=== PATIENT | female | born 1980 | race African-American/Black ===

== ENCOUNTER 2020-06-12 16:09 | Outpatient (REF) | payer OTHER, SELFPAY | END 2020-06-12 16:10 | disposition home or self-care (01) | LOC: HO.LAB 16:09 | PROVIDERS: PCP Internal Medicine; Visit Provider Internal Medicine | DX: Z20.828 Contact with and (suspected) exposure to other viral communicable diseases (principal) | CPT/HCPCS: C9803; U0003 ==

== ENCOUNTER 2024-03-06 08:49 | Outpatient (REF) | payer OTHER, SELFPAY ==
--- NOTE | ~2024-03-06 | XR_ITS ---
EXAMINATION: XR KNEE, RIGHT CLINICAL INFORMATION: Arthritic pain, without injury. COMPARISON: None available. TECHNIQUE: AP, lateral, tunnel, and sunrise views of the right knee. FINDINGS: Bony alignment and mineralization are normal. The lateral, medial and patellofemoral joint space compartments are well-maintained. There is tricompartment peripheral osteophyte formation, most pronounced in the medial joint space compartment. No fracture or dislocation is seen. There is a small joint effusion. No foreign body is seen. XR/XR knee LT 4V IMPRESSION: 1. There is mild tricompartment osteoarthritic changes of the right knee, most pronounced of the medial joint space compartment. 2. No fracture or dislocation is seen. 3. There is a small joint effusion. EXAMINATION: XR KNEE, LEFT CLINICAL INFORMATION: Arthritic pain, without injury. COMPARISON: None available. TECHNIQUE: AP, lateral, tunnel, and sunrise views of the left knee. FINDINGS: Bony alignment and mineralization are normal. The lateral, medial and patellofemoral joint space compartments are well-maintained. There is mild peripheral osteophyte formation of the medial joint space compartment. No fracture, dislocation or significant joint effusion is seen. There is no foreign body. IMPRESSION: 1. There is mild atherosclerotic change of the medial joint space compartment of the left knee. 2. No fracture, dislocation or joint effusion is seen. Electronically signed by: Javad Sutton MD 04/04/2024 04:17 PM EDT
--- NOTE | ~2024-03-06 | XR_ITS ---
EXAMINATION: XR KNEE, RIGHT CLINICAL INFORMATION: Arthritic pain, without injury. COMPARISON: None available. TECHNIQUE: AP, lateral, tunnel, and sunrise views of the right knee. FINDINGS: Bony alignment and mineralization are normal. The lateral, medial and patellofemoral joint space compartments are well-maintained. There is tricompartment peripheral osteophyte formation, most pronounced in the medial joint space compartment. No fracture or dislocation is seen. There is a small joint effusion. No foreign body is seen. XR/XR knee RT 4V IMPRESSION: 1. There is mild tricompartment osteoarthritic changes of the right knee, most pronounced of the medial joint space compartment. 2. No fracture or dislocation is seen. 3. There is a small joint effusion. EXAMINATION: XR KNEE, LEFT CLINICAL INFORMATION: Arthritic pain, without injury. COMPARISON: None available. TECHNIQUE: AP, lateral, tunnel, and sunrise views of the left knee. FINDINGS: Bony alignment and mineralization are normal. The lateral, medial and patellofemoral joint space compartments are well-maintained. There is mild peripheral osteophyte formation of the medial joint space compartment. No fracture, dislocation or significant joint effusion is seen. There is no foreign body. IMPRESSION: 1. There is mild atherosclerotic change of the medial joint space compartment of the left knee. 2. No fracture, dislocation or joint effusion is seen. Electronically signed by: Javad Sutton MD 04/04/2024 04:17 PM EDT
== END 2024-03-06 08:50 | disposition home or self-care (01) ==
LOC: HO.XRAY 08:49
PROVIDERS: PCP Internal Medicine; Visit Provider Internal Medicine
DX: M22.2X2 Patellofemoral disorders, left knee (principal); M22.2X1 Patellofemoral disorders, right knee
CPT/HCPCS: 73564

== ENCOUNTER 2025-01-31 10:54 | Outpatient (REF) | payer OTHER, SELFPAY ==
--- OUTSIDE RECORDS SUMMARY | 2025-01-31 12:01 | XMS_ITS | Clinical Summary ---
Author Organization [facility] Address [address] [place] [address] Phone Care Team Providers Care Manager Ambulatory Name Role Phone Milagro Pickett MD Primary Care Provider [phone] Encounters Date Type Department Care Team Description 12/22/2024 9:00 AM EDT - 12/22/2024 11:59 PM EDT [facility] at [address] [address] Encounter for screening mammogram for breast cancer Discharge Disposition: Home or Self Care from Last 3 Months Surgical History Surgery Date Site/Laterality Comments CHOLECYSTECTOMY PROCEDURE: [place] LAPAROSCOPY SURG CHOLECYSTECTOMY OTHER SURGICAL HISTORY PROCEDURE: [place] LAPAROSCOPY W/LYSIS OF ADHESIONS SECTION PROCEDURE: HISTORICAL DELIVERY; COMMENT: 2 prior C-sections Medical History Medical History Date Comments Anemia DX:Anemia Menorrhagia DX:Menorrhagia Fibroid uterus DX:Fibroid uteru s Female infertility, secondary DX :Female infertility, secondary Positive PPD DX:Positive PPD Social History Tobacco Use Types Packs/Day Years Used Date Smoking Tobacco: Never Smokeless Tobacco: Never Alcohol Use Standard Drinks/Week Comments Never 0 (1 standard drink = 0.6 oz pur e alcohol) Comments No Sex and Gender Information Value Date Recorded Sex Assigned at Not on file Legal Sex Female 5:14 PM EST Gender Identity Not on file Sexual Orientation Not on file Obstetrics History Para Term AB IAB SAB Ectopic Multiple Livin g Live Births 2 Last Filed Vital Signs Vital Sign Reading Time Taken Comments Blood Pressure - - Pulse - - Temperature - - Respiratory Rate - - Oxygen Saturation - - Inhaled Oxygen Concentration - - Weight 78.9 kg (174 lb) 12/22/2024 9:11 AM EDT Height 152.4 cm (5') 12/22/2024 9:11 AM EDT Body Mass Index 33.98 12/22/2024 9:11 AM EDT Plan of Treatment Health Maintenance Due Date Last Done Comments DTaP,Tdap,and Td Vaccines (1 - Tdap) 1999 Hepatitis B Vaccines (1 of 3 - 19+ 3-dose series) 1999 Cervical Cancer Screening: P ap Smear 2001 Depression Screening 06/27/2022 HIV Screening 06/27/2022 Hepatitis C Screening 06/27/2022 Social Influencers of Health Screening 06/27/2022 COVID-19 Vaccine (1 - 2023-2 5 season) 2024 Influenza Vaccine (#1) 2025 Breast Cancer Screening 12/22/2026 12/23/19 25, 12/10/2022, 04/03/2020 Meningococcal ACWY Vaccine Aged Out 01/05/2022 N o longer eligible based on patient's age to complete this topic HIB Vaccines Aged Out No longer eligi ble based on patient's age to complete this topic HPV Vaccines Aged Out No longer eligi ble based on patient's age to complete this topic Hepatitis A Vaccines Aged Out No long er eligible based on patient's age to complete this topic IPV Vaccines Aged Out No longer eligi ble based on patient's age to complete this topic MMR Vaccines Aged Out No longer eligi ble based on patient's age to complete this topic Meningococcal B Vaccine Aged Out No l onger eligible based on patient's age to complete this topic Pneumococcal Vaccine: Pediatrics (0 to 5 Years) and At-Risk Patients (6 to 49 Years) Aged Out No longer eligible b ased on patient's age to complete this topic RSV Immunization Patients Under 20 months Aged Out No longer eligible b ased on patient's age to complete this topic Varicella Vaccines Aged Out No longer eligible based on patient's age to complete this topic Procedures Procedure Name Priority Date/Time Associated Diagnosis Comments MG MAMMO DIGITAL SCREENING W ZENOBIA BILAT Routine 12/22/2024 9:17 AM EDT Encounter for screening mammogram for breast cancer from Last 3 Months Results * MG Mammo Digital Screening w Zenobia bilat (12/22/2024 9:17 AM EDT) Anatomical Region Laterality Modality Breast Bilateral Mammography 12/23/2024 12:0 8 PM EDT Impressions 12/23/2024 12:17 PM EDT No mammographic evidence of malignancy. No suspicious interval change. A negative mammogram in the presence of a clinically suspicious palpable abnormality does not preclude the possibility of malignancy or alter the indications for biopsy. ASSESSMENT: BI-RADS 1: NEGATIVE RECOMMENDATION(S): 1: Routine screening mammogram BILATERAL in 1 year. [facility] location[facility] at [address], [address] -------- FINAL REPORT -------- Dictated By: Ajay Jones Dictated Date: 12/23/2024 12:08 ET Assigned Physician: Ajay Jones Reviewed and Electronically Signed By: Ajay Jones Signed Date: 12/23/2024 12:17 ET Workstation ID: [id number] Transcribed By: Self Edit Transcribed Date: 12/23/2024 12:08 ET Narrative 12/23/2024 12:17 PM EDT EXAM: SCREENING MAMMOGRAPHY, BILATERAL HISTORY: SCREENING. 25 pound weight loss. COMPARISON: 12/09/22, 02/13/21, 04/03/20 TECHNIQUE: Synthesized CC and MLO projections of each breast. Tomosynthesis of each breast in the CC and MLO projections. ADDITIONAL IMAGING: None Computer-aided detection was employed with the Flareo AI 3-D. TISSUE DENSITY: There are scattered areas of fibroglandular density. (BI-RADS category B) FINDINGS: RIGHT BREAST: No suspicious mass. No suspicious calcification. No distortion. No additional suspicious right breast findings LEFT BREAST: No suspicious mass. No suspicious calcification. No distortion. No additional suspicious left breast findings Procedure Note Ajay Jones MD - 12/23/2024 EXAM: SCREENING MAMMOGRAPHY, BILATERAL HISTORY: SCREENING. 25 pound weight loss. COMPARISON: 12/09/22, 02/13/21, 04/03/20 TECHNIQUE: Synthesized CC and MLO projections of each breast.Tomosynthesis of each breast in the CC and MLO projections. ADDITIONAL IMAGING: None Computer-aided detection was employed with the iCAD ProFound AI 3-D. TISSUE DENSITY: There are scattered areas of fibroglandular density.(BI-RADS category B) FINDINGS: RIGHT BREAST: No suspicious mass. No suspicious calcification. No distortion. Noadditional suspicious right breast findings LEFT BREAST: No suspicious mass. No suspicious calcification. No distortion. Noadditional suspicious left breast findings IMPRESSION: No mammographic evidence of malignancy. No suspicious interval change. A negative mammogram in the presence of a clinically suspicious palpableabnormality does not preclude the possibility of malignancy or alter theindications for biopsy. ASSESSMENT: BI-RADS 1: NEGATIVE RECOMMENDATION(S): 1: Routine screening mammogram BILATERAL in 1 year. [facility] location[facility] at [address], [address] -------- FINAL REPORT -------- Dictated By: Ajay Jones Dictated Date: 12/23/2024 12:08 ET Assigned Physician: Aajy Jones Reviewed and Electronically Signed By: Ajay Jones Signed Date: 12/23/2024 12:17 ET Workstation ID: [id number] Transcribed By: Self Edit Transcribed Date: 12/23/2024 12:08 ET us Self Referral Sppl IMG BI PROCEDURES Final Resul t from Last 3 Months Insurance [facility] [address] [place] [address] Care Teams Manager Ambulatory Relationship Specialty Start Date End Date Milagro Pickett MD [address] PCP - General Internal Medicine 02/13/21
--- OUTSIDE RECORDS SUMMARY | 2025-01-31 12:01 | XMS_ITS | Clinical Summary ---
Author Organization [facility] Address [address] [place] [address] Care Team Providers Care Technical Sales Representatives Name Role Phone Ty Milagro Primary Care Provider [phone] Allergies No known active allergies Medications mefloquine (LARIAM) 250 mg tablet 1 tablet orally once weekly for 2 weeks before travel, weekly during travel and for 4 weeks after returning home 10 tablet Active Active Problems No known active problems Immunizations Immunization Administration Dates Next Due Meningococcal Polysaccharide (Groups A, C, Y and W-135) Diphtheria Toxoid Conjugate Vaccine (MCV4P) 01/05/2022 Typhoid Vi Capsular Polysaccharide Vaccine 01/05 Social History Tobacco Use Types Packs/Day Years Used Date Smoking Tobacco: Never Assessed Comments Unknown Sex and Gender Information Value Date Recorded Sex Assigned at Female 08/01/2024 11:39 AM EST Legal Sex Female 7:06 AM EDT Gender Identity Not on file Sexual Orientation Not on file Last Filed Vital Signs Vital Sign Reading Time Taken Comments Blood Pressure - - Pulse - - Temperature 36.7 C (98.1 F) 01/05/2022 5:08 PM EDT Respiratory Rate - - Oxygen Saturation - - Inhaled Oxygen Concentration - - Weight 81.2 kg (179 lb 0.2 oz) 01/05/2022 5:08 P M EDT Height - - Body Mass Index - - Plan of Treatment Health Maintenance Due Date Last Done Comments HIV Screening 1980 Varicella Vaccines (1 of - 13+ 2-dose series) 1993 Hepatitis B Vaccines (1 of 3 - 19+ 3-dose series) 1999 Pap Smear 09/28/2005 09/28/2002, 12/06/2000 Cervical Cancer Screening 09/29/2007 HPV and Pap Smear 09/29/2007 09/28/2002 DTaP,Tdap,and Td Vaccines (2 - Td or Tdap) 02/02/2023 02/02/2013 COVID-19 Vaccine ( - season) 2024 05/08/2021, 09/03/2020, 08/13/2020 Alcohol/Substance Use Screening 07/26/2024 Influenza Vaccine (#1) 2025 , 06/01/2023, 05/06/2021, Additional history exists RSV Vaccine (60+ years old and patients) (1 - 1-dose 75+ series) 2055 Pneumococcal Vaccine: Pediatric (0-5 Years) and At-Risk Patients (6-50 Years) Aged Out No longer eligible based on patient's age to complete this topic Procedures * Due to [place] [employer] law, this organization might not be sharing negative HIV tests. Procedure Name Priority Date/Time Associated Diagnosis Comments PAP W/REFLEX HPV, CONVERSION Routine 09/28/2002 10:43 AM EST from Last 3 Months or Most Recently Relevant to Health Maintenance Results * Due to [place] [employer] law, this organization might not be sharing negative HIV tests. * Pap w/Reflex HPV (09/28/2002 10:43 AM EST) Path Procedure TPG (101513) 1 Edited by: [id number] - 1042 [facility] ANATOMIC PATHOLOGY - BIOTECH THREE Specimen Labeled As: 1 CERVICAL/ENDOCERVI BARBRA CYTO MATERIAL - Edited by: [id number] CATRACHITA [facility] ANATOMIC PATHOLOGY - BIOTECH THREE Diagnosis THINPREP PAP TEST ADEQUACY: Satisfactory for evaluation INTERPRETATION: Negative for Intraepithelial Lesion or Malignancy REMARKS/RECOMMENDA TIONS: This is the result of a screening test with an inherent, but low, probability of false negative interpretation. Additional studies may be indicated in spite of a normal Pap test result. Edited by: [id number] - [id number] [facility] MANU[facility] ANATOMIC PATHOLOGY - BIOTECH THREE Gynecologic Clinical Data Specimen source:, THINPREP (CERVICAL AND ENDOCERVICAL) [facility] ANATOMIC PATHOLOGY - BIOTECH THREE Gynecologic Clinical Data First date of LMP:, 09/09/02 [facility] ANATOMIC PATHOLOGY - BIOTECH THREE Marker 1 SOPHY RAMIREZ [facility] ANATOMIC PATHOLOGY - BIOTECH THREE Marker 2 NILM,NILM [facility] ANATOMIC PATHOLOGY - BIOTECH THREE Cc Results To DARELL PARISH REF [id number] [facility] ANATOMIC PATHOLOGY - BIOTECH THREE Signature REPORT SIGNED: SOPHY ADAMS 10/03/02 [facility] ANATOMIC PATHOLOGY - BIOTECH THREE Sign Out Audit SOPHY ADAMS [id number] FINAL [place] [id number] [facility] ANATOMIC PATHOLOGY - BIOTECH THREE Cytology / Unknown 3 10:43 AM EST 09/29/2002 10:43 AM EST us Marge Monahan LAB HISTORICAL RESULTS Final Res ult [facility] ANATOMIC PATHOLOGY - BIOTECH THREE [address] [place] [address], from Last 3 Months or Most Recently Relevant to Health Maintenance Insurance [employer] Care Teams Technical Sales Representatives Relationship Specialty Start Date End Date Milagro Crawford [address] [address] PCP - General Internal Medicine 11/27/21
[2025-01-31 13:17] LABS: MANUAL DIFF FLAG NO
[2025-01-31 13:23] LABS: Hematocrit 36.7 % (37.0-47.0); Hemoglobin 11.4 g/dl (12.0-16.0); Imm Gran Abs Auto 0.01 X10*3/uL (0.00-0.03); Imm Gran Pct Auto 0.2 % (0.0-0.4); Lymphocytes Absolute Auto 1.8 X10*3/uL (1.2-4.9); Mean Corpuscular HGB Conc 31.1 g/dl (31.0-35.0); Mean Corpuscular Hemoglobin 26.5 pg (27.0-33.0); Mean Corpuscular Volume 85.2 fL (80.0-98.0); NRBC Abs Auto 0.000 X10*3/uL (0.0-0.012); NRBC Pct Auto 0.0 /100WBC (0.0-0.2); Platelet Count 286 X10*3/uL (160-400); Red Blood Count 4.31 X10*6/uL (4.20-5.50); White Blood Count 4.1 X10*3/uL (4.8-10.8)
[2025-01-31 13:27] LABS: Hemoglobin A1C 161.7899 umol/L; Total Hemoglobin (HGBA1C) 3039.2044 umol/L
[2025-01-31 13:32] LABS: Alanine Aminotransferase 14 U/L (0-31); Albumin Level 4.3 g/dL (3.5-5.0); Alkaline Phosphatase 57 U/L (39-117); Anion Gap 11 (12-20); Aspartate Amino Transferase 19 U/L (5-31); Blood Urea Nitrogen 10 mg/dL (9-16); Calcium 8.8 mg/dL (8.4-10.2); Carbon Dioxide 26 mmol/L (22-29); Chloride 107 mmol/L (96-108); Estimated Glomerular Filt Rate > 60; Potassium 3.7 mmol/L (3.3-5.1); Sodium 140 mmol/L (135-145); Total Protein 7.3 g/dL (6.5-8.0)
[2025-01-31 14:04] LABS: Microalbum/Creatinine Ratio Ur 12.2 ug/mg cr (<30)
== END 2025-01-31 10:55 | disposition home or self-care (01) ==
LOC: HO.10HDL 10:54
PROVIDERS: Visit Provider Internal Medicine
DX: Z00.00 Encounter for general adult medical examination without abnormal findings (principal); E78.00 Pure hypercholesterolemia, unspecified; E11.9 Type 2 diabetes mellitus without complications; D64.9 Anemia, unspecified
CPT/HCPCS: 36415; 80053; 82043; 82570; 83036; 85025

== ENCOUNTER 2025-05-10 13:48 | Outpatient (REF) | payer OTHER, SELFPAY ==
--- NOTE | ~2025-05-10 | XR_ITS ---
EXAMINATION: XR KNEE, LEFT CLINICAL INFORMATION: LEFT KNEE ARTHRITIS COMPARISON: X-ray 03/06/2024 TECHNIQUE: 5 views of the left knee. FINDINGS: No acute fracture, dislocation or suspicious bony lesion. Joint spaces are maintained. No significant effusion. No abnormal soft tissue calcification. Superior patellar insertional enthesopathy. XR/XR knee LT 4V IMPRESSION: No acute osseous findings. Electronically signed by: Clark Cornejo MD 05/10/2025 04:39 PM EDT
--- OUTSIDE RECORDS SUMMARY | 2025-05-10 17:34 | XMS_ITS | Clinical Summary ---
Author Organization [facility] Address [address] [place] [address] Care Team Providers Care Visual Education Director Name Role Phone Ty Milagro Primary Care Provider [phone] Allergies No known active allergies Medications mefloquine [...] Health Maintenance Due Date Last Done Comments Cologuard 1980 Colon Cancer Screening 1980 Colonoscopy 1980 FOBT / Fit Test 1980 HIV Screening 1980 Sigmoidoscopy 1980 Varicella Vaccines (1 of 2 - 13+ 2-dose series) 1993 Hepatitis B Vaccines (1 of 3 - 19+ 3-dose series) 1999 DTaP,Tdap,and Td Vaccines (2 - Td or Tdap) 02/02/2023 02/02/2013 Alcohol/Substance Use Screening 07/26/2024 COVID-19 Vaccine ( season) 2025 05/08/2021, 09/03/2020, 08/13/2020 Influenza Vaccine (#1) 2025 , 06/01/2023, 05/06/2021, Additional history exists RSV Vaccine (60+ years old and patients) (1 - 1-dose 75+ series) 2055 Cervical Cancer Screening Discontinued HPV and Pap Smear Discontinued 09/28/2002 Pap Smear Discontinued 09/28/2002, 12/06/2000 Pneumococcal Vaccine: Pediatric (0-5 Years) and At-Risk Patients (6-50 Years) Aged Out No longer eligible based on patient's age to complete this topic Procedures * Due to [place] law, this organization might not be sharing negative HIV tests. Procedure Name Priority Date/Time Associated Diagnosis Comments PAP W/REFLEX HPV, CONVERSION Routine 09/28/2002 10:43 AM EST from Last 3 Months or Most Recently Relevant to Health Maintenance Results * Due to [facility] law, this organization might not be sharing negative HIV tests. * Pap w/Reflex HPV (09/28/2002 10:43 AM EST) Path Procedure TPG (231056) 1 Edited by: [id number] - 1042 [facility] ANATOMIC PATHOLOGY - BIOTECH THREE Specimen Labeled As: 1 CERVICAL/ENDOCERVI BARBRA CYTO MATERIAL - Edited by: [id number] CATRACHITA [facility] ANATOMIC PATHOLOGY - BIOTECH THREE Diagnosis THINPREP PAP TEST ADEQUACY: Satisfactory for evaluation INTERPRETATION: Negative for Intraepithelial Lesion or Malignancy REMARKS/RECOMMENDA TIONS: This is the result of a screening test with an inherent, but low, probability of false negative interpretation. Additional studies may be indicated in spite of a normal Pap test result. Edited by: [id number] - 18[address] [facility] [facility] ANATOMIC PATHOLOGY - BIOTECH THREE Gynecologic Clinical Data Specimen source:, THINPREP (CERVICAL AND ENDOCERVICAL) [facility] ANATOMIC PATHOLOGY - BIOTECH THREE Gynecologic Clinical Data First date of LMP:, 09/09/02 [facility] ANATOMIC PATHOLOGY - BIOTECH THREE Marker 1 SOPHY RAMIREZ [facility] ANATOMIC PATHOLOGY - BIOTECH THREE Marker 2 NILM,NILM [facility] ANATOMIC PATHOLOGY - BIOTECH THREE Cc Results To DARELL PARISH REF [id number] [facility] ANATOMIC PATHOLOGY - BIOTECH THREE Signature REPORT SIGNED: SOPHY ADAMS 10/03/02 [facility] ANATOMIC PATHOLOGY - BIOTECH THREE Sign Out Audit SOPHY ADAMS [id number] FINAL [place] [id number] [facility] ANATOMIC PATHOLOGY - BIOTECH THREE Cytology / Unknown 3 10:43 AM EST 09/29/2002 10:43 AM EST us Marge Monahan LAB HISTORICAL RESULTS Final Res ult [facility] ANATOMIC PATHOLOGY - BIOTECH THREE [address] [place] [address], from Last 3 Months or Most Recently Relevant to Health Maintenance Insurance [facility] Care Teams Visual Education Director Relationship Specialty Start Date End Date Milagro Crawford [address] [place] [address] PCP - General Internal Medicine 11/27/21
--- OUTSIDE RECORDS SUMMARY | 2025-05-10 17:34 | XMS_ITS | Clinical Summary ---
Author Organization [facility] Address [address] [place] [address] Phone Care Team Providers Care Naval Designer Name Role Phone Milagro Pickett MD Primary Care Provider [phone] Surgical History Surgery Date Site/Laterality Comments CHOLECYSTECTOMY PROCEDURE: [place] LAPAROSCOPY SURG CHOLECYSTECTOMY OTHER SURGICAL HISTORY PROCEDURE: [place] LAPAROSCOPY W/LYSIS OF ADHESIONS SECTION PROCEDURE: HISTORICAL [...] Health Maintenance Due Date Last Done Comments Colorectal Cancer Screening: Colonoscopy 1980 DTaP,Tdap,and Td Vaccines (1 - Tdap) 1999 Hepatitis B Vaccines (1 of 3 - 19+ 3-dose series) 1999 Cervical Cancer Screening: P ap Smear 2001 HPV Vaccines (1 - 3-dose SCD M series) 2007 HIV Screening 06/27/2022 Hepatitis C Screening 06/27/2022 Social Influencers of Health Screening 06/27/2022 Depression Screening 07/26/2024 COVID-19 Vaccine ( - 2023-2 5 season) 2025 Influenza Vaccine (#1) 2025 Breast Cancer Screening 12/22/2026 12/23/19 25, 12/10/2022, 04/03/2020 RSV Immunization Adult Patients (1 - 1-dose 75+ series) 2055 Meningococcal ACWY Vaccine Aged Out 01/05/2022 N [...] for breast cancer from Last 3 Months or Most Recently Relevant to Health Maintenance Results * MG Mammo Digital Screening w [...] year. [facility] at [address], [address] -------- FINAL REPORT -------- Dictated By: Ajay Jones Dictated Date: 12/23/2024 12:08 ET Assigned Physician: Ajay Jones Reviewed and Electronically Signed By: Ajay Jones Signed Date: 12/23/2024 12:17 ET Workstation ID: [id number] Transcribed By: Self Edit Transcribed Date: 12/23/2024 12:08 ET Narrative 12/23/2024 12:17 PM EDT EXAM: SCREENING MAMMOGRAPHY, BILATERAL HISTORY: SCREENING. 25 pound weight loss. COMPARISON: 12/09/22, 02/13/21, 04/03/20 TECHNIQUE: Synthesized CC and MLO projections of each breast. Tomosynthesis of each breast in the CC and MLO projections. ADDITIONAL IMAGING: None Computer-aided detection was employed with the [employer]r AI 3-D. TISSUE DENSITY: There are scattered [...] None Computer-aided detection was employed with the Tendr AI 3-D. TISSUE DENSITY: There are scattered [...] year. [facility] [address] [place], [address] -------- FINAL REPORT -------- Dictated By: Ajay Jones Dictated Date: 12/23/2024 12:08 ET Assigned Physician: Ajay Jones Reviewed and Electronically Signed By: Ajay Jones Signed Date: 12/23/2024 12:17 ET Workstation ID: [id number] Transcribed By: Self Edit Transcribed Date: 12/23/2024 12:08 ET us Self Referral Sppl IMG BI PROCEDURES Final Resul t from Last 3 Months or Most Recently Relevant to Health Maintenance Insurance Care Teams Naval Designer Relationship Specialty Start Date End Date Milagro Pickett MD [address] PCP - General Internal Medicine 02/13/21
== END 2025-05-10 13:49 | disposition home or self-care (01) ==
LOC: HO.XRAY 13:48
PROVIDERS: PCP Internal Medicine; Visit Provider Internal Medicine
DX: M22.2X2 Patellofemoral disorders, left knee (principal)
CPT/HCPCS: 73564

== ENCOUNTER → 2025-05-10 13:56 | Outpatient (BNV) | payer OTHER, SELFPAY | PROVIDERS: PCP Internal Medicine; Visit Provider Radiology Diagnostic Ultrasound | DX: M17.12 Unilateral primary osteoarthritis, left knee (principal) | CPT/HCPCS: 73564 ==